=== PATIENT | female | born 1955 ===

== ENCOUNTER 2022-01-06 09:40 | Emergency (ER) | payer MEDICARE, MEDICAID ==
[~2022-01-06] VITALS: Ht 162.6 cm; Wt 54.4 kg
[2022-01-06 09:44] VITALS: BP 172/82
[2022-01-06] MEDS ORDERED: HYDROcodone-ACET 10/325MG TAB PO ONE (12:30)
== END 2022-01-06 16:16 | disposition home or self-care (01) ==
LOC: ER 09:51
DX: M79.605 Pain in left leg (principal); Z88.8 Allergy status to other drugs, medicaments and biological substances; Z88.2 Allergy status to sulfonamides
CPT/HCPCS: 93971